=== PATIENT | female | born 1990 | race African-American/Black ===

== ENCOUNTER 2016-10-07 22:07 | Emergency (ER) | payer MEDICAID ==
[~2016-10-07] VITALS: Ht 165.1 cm; Wt 59.0 kg
[2016-10-08] MEDS ORDERED: HYDROCODONE/APAP 7.5/325MG 1 TAB TABLET PO ONE (00:30)
[2016-10-08 01:28] VITALS: BP 114/79
[2016-10-08] MEDS ORDERED: KETOROLAC 60MG/2ML VIAL IM ONE (01:30)
== END 2016-10-08 01:45 | disposition home or self-care (01) ==
LOC: ER 22:07
DX: K08.89 Other specified disorders of teeth and supporting structures (principal)
CPT/HCPCS: 96372; 99283; J1885; Z7610

== ENCOUNTER 2018-05-20 10:45 | Emergency (ER) | payer MEDICAID ==
[~2018-05-20] VITALS: Ht 167.6 cm; Wt 72.0 kg
[2018-05-20] MEDS ORDERED: SODIUM CHLORIDE 0.9% 1,000 ML IV ONE (11:10)
[2018-05-20] MEDS ORDERED: MORPHINE SULFATE 4 MG/ML CPJ (NOT FOR IM USE) IV STA (11:10)
[2018-05-20] MEDS ORDERED: FAMOTIDINE 20MG/2ML VIAL IV STA (11:10)
[2018-05-20] MEDS ORDERED: ONDANSETRON HCL 4MG/2ML INJ IV STA (11:10)
[2018-05-20 11:39] LABS: BASOPHILS % 0.4 % (0.0-2.0); HEMATOCRIT. 36.5 % (36.0-48.0); LYMPHOCYTES % 7.2 % (20.0-50.0); MEAN CORPUSCULAR HEMOGLOBIN 27.4 pg (28.0-32.0); MEAN CORPUSCULAR VOLUME 83.1 fL (81.0-99.0); MEAN PLATELET VOLUME 9.1 fl (7.4-10.4); MONOCYTES % 2.7 % (2.0-8.0); NEUTROPHILS % 89.7 % (40.0-76.0); PLATELET 255 x1000/uL (130-400); RED BLOOD CELL COUNT 4.39 mill/uL (4.2-5.4); RED CELL DISTRIBUTION WIDTH 15.7 % (11.6-14.6)
[2018-05-20 11:44] LABS: CHLORIDE 104 mEq/L (98-107)
[2018-05-20 11:48] LABS: ETHANOL BLOOD < 10 mg/dL
[2018-05-20] MEDS ORDERED: MORPHINE SULFATE 10MG/5ML ORAL SOLN UDC PO PRN (13:00)
[2018-05-20] MEDS ORDERED: ONDANSETRON HCL 4MG/2ML INJ IV ONE (13:00)
[2018-05-20] MEDS ORDERED: DICYCLOMINE HCL 10MG/ML 2ML AMP IM STA (13:32)
[2018-05-20] MEDS ORDERED: MORPHINE SULFATE 4 MG/ML CPJ (NOT FOR IM USE) IV ONE (13:45)
[2018-05-20 15:36] LABS: *AMPHETAMINES SCREEN URINE NEGATIVE (NEGATIVE); *BARBITURATES SCREEN URINE NEGATIVE (NEGATIVE); *BENZODIAZEPINES SCREEN URINE NEGATIVE (NEGATIVE); *COCAINE SCREEN URINE NEGATIVE (NEGATIVE); METHADONE URINE SCREEN NEGATIVE (NEGATIVE)
[2018-05-20 15:45] LABS: CANNABINOID URINE SCREEN PRESUMTIVE POSITIVE (NEGATIVE); OPIATES URINE SCREEN PRESUMTIVE POSITIVE (NEGATIVE); PHENCYCLIDINE URINE SCREEN PRESUMTIVE POSITIVE (NEGATIVE)
[2018-05-20 16:30] VITALS: BP 117/84
== END 2018-05-20 16:59 | disposition home or self-care (01) ==
LOC: ER 11:03
DX: R10.9 Unspecified abdominal pain (principal); F10.129 Alcohol abuse with intoxication, unspecified
CPT/HCPCS: 36415; 80053; 80305; 81025; 83690; 85025; 96361; 96372; 96374; 96375; 96376; 99285; G0482; J0500; J2270; J2405; J3490; J7030

== ENCOUNTER 2018-09-01 00:31 | Emergency (ER) | payer MEDICAID ==
[~2018-09-01] VITALS: Ht 157.5 cm; Wt 59.0 kg
[2018-09-01] MEDS ORDERED: ONDANSETRON HCL 4MG/2ML INJ IV STA (02:48)
[2018-09-01] MEDS ORDERED: KETOROLAC 30MG/ML VIAL IV STA (02:48)
[2018-09-01] MEDS ORDERED: SODIUM CHLORIDE 0.9% 1,000 ML IV ONE (03:15)
[2018-09-01 03:39] LABS: HEMATOCRIT. 41.9 % (36.0-48.0); HEMOGLOBIN. 14.1 g/dL (12.0-16.0); MEAN CORPUSCULAR VOLUME 83.4 fL (81.0-99.0); MEAN PLATELET VOLUME 9.4 fl (7.4-10.4); PLATELET 297 x1000/uL (130-400); RED BLOOD CELL COUNT 5.03 mill/uL (4.2-5.4); RED CELL DISTRIBUTION WIDTH 16.1 % (11.6-14.6)
[2018-09-01 03:39] LABS: CLARITY URINE TURBID (CLEAR); COLOR URINE YELLOW (YELLOW); KETONES URINE NEGATIVE (NEGATIVE); LEUKOCYTE ESTERASE URINE NEGATIVE (NEGATIVE); NITRITE URINE NEGATIVE (NEGATIVE); OCCULT BLOOD URINE 1+ (NEGATIVE); PH URINE >=9.0 (4.5-8.0); PROTEIN URINE NEGATIVE (NEGATIVE); SPECIFIC GRAVITY URINE 1.019 (1.005-1.030); UROBILINOGEN URINE 0.2 E.U./dL (0.2-1.0)
[2018-09-01 03:41] LABS: CHLORIDE 101 mEq/L (98-107)
[2018-09-01 03:54] VITALS: BP 120/68
[2018-09-01] MEDS ORDERED: ACETAMINOPHEN 500MG TABLET PO ONE (04:00)
[2018-09-01 04:05] LABS: *AMPHETAMINES SCREEN URINE NEGATIVE (NEGATIVE); *BARBITURATES SCREEN URINE NEGATIVE (NEGATIVE); *BENZODIAZEPINES SCREEN URINE NEGATIVE (NEGATIVE); *COCAINE SCREEN URINE NEGATIVE (NEGATIVE); METHADONE URINE SCREEN NEGATIVE (NEGATIVE); OPIATES URINE SCREEN NEGATIVE (NEGATIVE)
[2018-09-01 04:06] LABS: PHENCYCLIDINE URINE SCREEN NEGATIVE (NEGATIVE)
[2018-09-01 04:11] LABS: CANNABINOID URINE SCREEN PRESUMTIVE POSITIVE (NEGATIVE)
[2018-09-01 04:25] LABS: PLATELET ESTIMATE NORMAL
== END 2018-09-01 04:40 | disposition home or self-care (01) ==
LOC: ER 00:31
DX: R10.84 Generalized abdominal pain (principal); M79.10 Myalgia, unspecified site
CPT/HCPCS: 36415; 80053; 80305; 81003; 81025; 83690; 85025; 87804; 96374; 96375; 99283; J1885; J2405; J7030; Z7610